=== PATIENT | female | born 1950 | race Caucasian/White ===

== ENCOUNTER 2021-11-28 19:35 | Emergency (ER) | payer OTHER, MEDICARE ==
[2021-11-28 19:55] VITALS: BP 159/90; PULSE 83; TEMP 98.1; BMI 21.2
[2021-11-28] MEDS ORDERED: DIPHTH,PERTUSS(ACELL),TET 0.5 ML DISP.SYRIN IM ONE ×2 (20:29→20:50)
[2021-11-28] MEDS ORDERED: ACETAMINOPHEN 500 MG TABLET (FP) PO ONE (20:31)
[2021-11-28] MEDS ORDERED: ACETAMINOPHEN 500 MG TABLET (FP) ONE (20:49)
== END 2021-11-28 21:10 | disposition home or self-care (01) ==
LOC: JERFT 19:35 → JER 19:35 → JERFT 21:10
PROC: 3E0234Z Introduction of Serum, Toxoid and Vaccine into Muscle, Percutaneous Approach (ICD-10-PCS; principal; 2021-11-28)
DX: S51.811A Laceration without foreign body of right forearm, initial encounter (principal); W25.XXXA Contact with sharp glass, initial encounter
CPT/HCPCS: 90471; 90715; 99284-25

== ENCOUNTER 2021-12-10 10:29 | Emergency (ER) | payer OTHER, MEDICARE ==
[2021-12-10 10:35] VITALS: BP 153/77; PULSE 82; TEMP 98.2; BMI 21.2
== END 2021-12-10 11:38 | disposition home or self-care (01) ==
LOC: JERFT 10:29
DX: Z48.01 Encounter for change or removal of surgical wound dressing (principal)
CPT/HCPCS: 99281-25